=== PATIENT | female | born 1930 | race African-American/Black ===

== ENCOUNTER 2017-03-25 19:43 | Emergency (ER) | payer OTHER ==
[~2017-03-25] VITALS: Ht 157.5 cm; Wt 72.6 kg
[2017-03-25 20:04] VITALS: BP 142/77
--- NOTE | 2017-03-25 20:10 | ED AMS/SEIZURE/WEAK/DIZZY ---
History of Present Illness General Chief Complaint: Altered Mental Status Stated Complaint: BIBA WITH ALTERED MENTAL STATUS Source: patient Exam Limitations: dementia, poor historian Vital Signs & Intake/Output Vital Signs & Intake/Output Vital Signs Date Time Temp Pulse Resp B/P B/P Pulse O2 O2 Flow FiO2 Mean Ox Delivery Rate 03/25 2005 Room Air 03/25 2004 97.0 92 16 142/77 96 Room Air Triage Note: BIBA ON PEER AFTER BEING FOUND WANDERING AROUND YARD. WHEN BROUGHT HOME DID NOT RECOGNIZE HER OWN HOME. PT LIVES WITH SON AND REPORTEDLY GETS [facility] SERVICES. POLICE UNABLE TO CONTACT SON AND [facility] NOT ABLE TO COME TO HOME TO CARE FOR PT. PT BROUGHT IN FOR DEMENTIA CHECK. PER EMS WHO KNOW PT SHE APPEARS TO BE AT HER BASELINE. PT AWAKE, ALERT ORIENTED X2. DENIES PAIN OR SOB. SMILING. IN NO OVERT DISTRESS Triage Nurses Notes Reviewed? yes HPI: Patient presents for evaluation at the request of police because she was found by a neighbor wandering in her neighborhood. When she was brought back to her house she didn't seem to recognize it. The police were unable to contact a family member so she was brought to the emergency department for her own safety. The patient is unable to provide history. She has no complaints currently and feels well. Past History Travel History Traveled to [place] past 21 day No Medical History Any Pertinent Medical History? see below for history Neurological: DEMENTIA ??? Surgical History Surgical History: non-contributory Psychosocial History What is your primary language Slovak Tobacco Use: Cognitive Impairment ETOH Use: occasional use Family History Hx Contributory? No Review of Systems Review of Systems Constitutional: Reports: no symptoms. EENTM: Reports: no symptoms. Respiratory: Reports: no symptoms. Cardiovascular: Reports: no symptoms. GI: Reports: no symptoms. Genitourinary: Reports: no symptoms. Musculoskeletal: Reports: no symptoms. Skin: Reports: no symptoms. Neurological/Psychological: Reports: no symptoms. Hematologic/Endocrine: Reports: no symptoms. Immunologic/Allergic: Reports: no symptoms. All Other Systems: Reviewed and Negative Physical Exam Physical Exam General Appearance: SEE BELOW Comments: Gen.: Well-nourished, well-developed, no acute respiratory distress. Head: Normocephalic, atraumatic. Eyes: Normal inspection bilaterally Ears: Normal inspection bilaterally Nose: Normal inspection Throat/mouth : Moist mucosa Neck: Supple, full range of motion, no goiter Heart: Regular rate and rhythm, no murmurs rubs or gallops Lungs: Clear to auscultation bilaterally with normal air entry Chest: Nontender Back: Normal range of motion Abdomen: Soft, nontender, nondistended, normal bowel sounds Extremities: Normal range of motion grossly, equal radial pulses, no cyanosis clubbing or edema, extremity strength normal Neurologic: Cranial nerves 2 through 12 intact, speech is clear Skin: warm and dry Psychiatric: Calm, cooperative, no apparent delusions or hallucinations Core Measures ACS in differential dx? No CVA/TIA Diagnosis: No Severe Sepsis Present: No Septic Shock Present: No Progress Differential Diagnosis: DEMENTIA Plan of Care: Family to pick patient up later. Initial ED EKG: none Comments: pts son presented to ed and confirmed pt has hx of dementia and that she was at baseline mentation. apparently pts home [facility] should have been home with pt but was not. Departure Departure Disposition: HOME OR SELF CARE Condition: Stable Clinical Impression Primary Impression: Dementia Qualifiers: Dementia type: unspecified type Dementia behavioral disturbance: without behavioral disturbance Qualified Code: F03.90 - Unspecified dementia without behavioral disturbance Secondary Impressions: Wandering Departure Forms: Customer Survey General Discharge Information
== END 2017-03-25 22:03 ==
LOC: ERH 19:43
DX: F03.90 Unspecified dementia, unspecified severity, without behavioral disturbance, psychotic disturbance, mood disturbance, and anxiety (principal); Z91.83 Wandering in diseases classified elsewhere